=== PATIENT | male | born 1955 | race Asian ===

== ENCOUNTER 2018-09-21 18:30 | Observation (INO) | payer OTHER ==
[~2018-09-21] VITALS: Ht 193 cm; Wt 113.9 kg
[2018-09-21 18:30] VITALS: BP 128/97; TEMP 99.1
[2018-09-21] MEDS ORDERED: TRILEPTAL150 MG PO (18:43)
[2018-09-21] MEDS ORDERED: DIPH50CA30 PO (18:43)
[2018-09-21 19:00] VITALS: BP 140/92
[2018-09-21 19:14] LABS: PLATELET COUNT 301 K/uL (142-355)
[2018-09-21 19:29] LABS: POTASSIUM 3.9 mmol/L (3.6-5.2); SODIUM 138 mmol/L (136-145)
[2018-09-21 19:36] LABS: PARTIAL THROMBOPLASTIN TIME 28.4 SECONDS (24.5-33.6)
[2018-09-21 19:45] VITALS: BP 127/83
[2018-09-21 20:30] VITALS: BP 126/79; TEMP 98.6
[2018-09-21 21:37] VITALS: BP 123/87; TEMP 97.8; Ht 193 cm; Wt 113.9 kg
[2018-09-22 04:00] VITALS: BP 121/86; TEMP 98.3
[2018-09-22 08:00] VITALS: BP 132/75; TEMP 97.8
[2018-09-22 12:00] VITALS: BP 130/92; TEMP 97.6
[2018-09-22 21:00] VITALS: BP 131/91; TEMP 98.1
[2018-09-23] VITALS: BP 144/92; TEMP 98
[2018-09-23 04:00] VITALS: BP 129/91; TEMP 98.1
== END 2018-09-23 17:40 ==
LOC: ED 18:33 → MED/SURG 20:13
PROVIDERS: Student in an Organized Health Care Education/Training Program; ADMIT Internal Medicine
DX: R41.82 Altered mental status, unspecified (principal); F82 Specific developmental disorder of motor function; G24.01 Drug induced subacute dyskinesia; Z72.0 Tobacco use; F31.89 Other bipolar disorder; H10.30 Unspecified acute conjunctivitis, unspecified eye
CPT/HCPCS: 36415; 80053; 80156; 80307; 80320; 80329; 81000; 82962; 83605; 83735; 83880; 84443; 84484; 85027; 85610; 85730; 87040; 93005; 96365; 96366; 99220; 99283; A9576; G0378; J2060